=== PATIENT | female | born 1995 | race Caucasian/White ===

== ENCOUNTER 2021-04-01 20:42 | Emergency (ER) | payer OTHER ==
[~2021-04-01] VITALS: Ht 160 cm; Wt 59.0 kg
[~2021-04-01 20:42] MED LIST: DICLOFENAC SODI75 MG PO; FENTANYL1 EAC6 TD; GABAPENTIN600 MG PO; OXYCODONE HCL5 MG PO
--- OUTSIDE RECORDS SUMMARY | 2021-04-01 20:50 | XMS ---
PreManage Notification: JACQUELINE BARAJAS Security Order Manager Events No recent Security Events currently on file CRITERIA MET - [facility] - 2 Visits in 30 Days CARE PROVIDERS ANGELA Garner Nurse Practitioner [facility] PHONE: [phone] Clementine has no Care Guidelines for this patient. [place] VISIT COUNT (12 MO.) [address] TOTAL 3 NOTE: Visits indicate total known visits. ED/UCC VISIT TRACKING (12 MO.) 04/01/2021 20:43 [facility] [place] TYPE: Emergency COMPLAINT: - INJURED LEFT KNEE [facility] COMPLAINT: - covid testing DIAGNOSES: - covid testing [facility] COMPLAINT: - MENTAL HEALTH DIAGNOSES: - MENTAL HEALTH INPATIENT VISIT TRACKING (12 MO.) No inpatient visits to display in this time frame [email or web address]
== END 2021-04-01 21:50 | disposition home or self-care (01) ==
LOC: ED 20:42
DX: M25.562 Pain in left knee (principal); F17.200 Nicotine dependence, unspecified, uncomplicated; Z88.0 Allergy status to penicillin; Z88.5 Allergy status to narcotic agent
CPT/HCPCS: 73560; 99283-25; A9270

== ENCOUNTER 2023-02-12 00:10 | Emergency (ER) | payer SELFPAY ==
[~2023-02-12] VITALS: Ht 160 cm; Wt 56.7 kg
[2023-02-12 05:49] VITALS: BP 113/78
== END 2023-02-12 05:50 | disposition home or self-care (01) ==
LOC: ED 00:10 → EDBD 00:11 → ED 05:50
DX: T40.411A Poisoning by fentanyl or fentanyl analogs, accidental (unintentional), initial encounter (principal); R40.0 Somnolence
CPT/HCPCS: 99284